=== PATIENT | male | born 1955 | race Caucasian/White ===

== ENCOUNTER 2017-07-09 02:03 | Inpatient (IN) | payer OTHER ==
[~2017-07-09] VITALS: Ht 170.2 cm; Wt 124.3 kg
[~2017-07-09 02:03] MED LIST: LISINOPRIL-HCT1 EAC1 PO; OMEPRAZOLE20 M2 PO; ONE DAILY MULT1 EAC2 PO; VITAMIN D1000 UNI1 PO; VITAMIN D2000 UNIT PO
--- NOTE | 2017-07-09 07:30 | Operative Report ---
Operative/Inv Procedure Report Surgery Date: 07/09/17 Name of Procedure: Left total knee arthroplasty Pre-Operative Diagnosis: Left knee degenerative joint disease Post-Operative Diagnosis: Left knee degenerative joint disease Estimated Blood Loss: 50ml to 100ml Surgeon/Assembly Machine Offbearer: Barry Peñaloza MD Anesthesia: general endotracheal tube, block Implants: [employer] size 7 left posterior stabilized Legion Oxinium femoral component. Mary Lou II left nonporous tibial baseplate size 5. Mary Lou II biconvex patellar component size 23 mm. Size 56 13 mm Legion posterior stabilized XlPe high flexion articular insert. Drains: Hemovac Complications: None Condition: Stable to PACU Operative Indication: This 62-year-old male with long-standing left knee pain that has failed conservative care. Risks and benefits of the procedure were discussed with the patient at length. Risks include but are not limited to nerve damage, muscle damage, infection, blood loss, blood clots, pulmonary embolus, and even . The patient agreed to the above risks and elected to proceed with surgery. Operative/Procedure Note Note: The patient was taken to the operating room. Anesthesia was induced after the timeout was performed. The lower extremity was prepped and draped in the normal sterile fashion. IV antibiotics were given prior to incision. The site marking was visualized prior to incision. After the leg was prepped and draped, an esmarch was used to exsanguinate the extremity. The tourniquet was inflated. A midline incision was made proximal to the patella extending down to the tibial tubercle. A medial parapatellar approach was then made. The skin was retracted and the extensor mechanism was incised. The knee was taken down into full extension. The patellar fat pad was resected. The medial retinaculum was then taken down. The synovium over the distal femur was then resected. The patella was everted and the knee was flexed up. The lateral meniscus was then excised. The ACL was removed. A drill was then used to open up the distal femur. The intramedullary guide was then applied. A 6 distal femoral cut was then made. The femur was then sized. The chamfer guide was then applied. The anterior, posterior, and chamfer cuts were then made while protecting the patellar tendon with a Hohmann retractor and the medial collateral ligament with a Z retractor. A pickle fork was then used to deliver the tibia. The extramedullary tibial guide was then applied. The proximal tibial cut was made. The medial and lateral meniscus were then excised. The osteophytes were removed with a Rongeur. The tibia was sized and the trial base plate was then pinned in place. A trial femoral component was placed and a trial polyethylene insert was then applied as well. The knee was taken through a range of motion and was noted to be quite stable. The patella was then everted, sized, and then reamed. A trial patellar component was placed and the knee was taken through range of motion. The patella was noted to be quite stable. The femoral box cuts were then made for posterior stabilized knee. The tibial thin punch was then used. All trial instruments were then removed. The knee was copiously irrigated. Retractors were placed in the final components were then cemented in. A trial polyethylene insert was then placed. After the cement hardened, the excess cement was removed. The trial poly-insert was then removed. The knee was copiously irrigated. The final poly insert was inserted. The tourniquet was let down. Any bleeding vessels were identified and cauterized. A 1/8 inch Hemovac drain was then placed. The extensor mechanism was closed with #1 Vicryl suture in a simple interrupted fashion. The skin was closed with 2-0 Vicryl suture. A running subcuticular 4-0 Monocryl stitch was then placed. Dermabond was applied. A dry sterile dressing was placed and patient was transferred to PACU in stable condition.
--- NOTE | 2017-07-09 10:35 | Admission Core Measures ---
Acute Coronary Syndrome (CM) ACS Core Measures Acute Coronary Syndrome Diagnosis No Congestive Heart Failure (NEW) CHF Core Measures Congestive Heart Failure Diagnosis No Cerebrovascular Accident (NEW) CVA Core Measures CVA/TIA Diagnosis No Venous Thromboembolism VTE Core Vitaliy (View Protocol) VTE Risk Factors Age>40 No Mechanical VTE Prophylaxis d/t N/A MechProphylax Ordered No VTE Pharm Prophylaxis d/t NA PharmProphylax ordered Problem List As ranked by this Provider includes Assessment & Plan 1. Primary osteoarthritis of left knee HOME MEDS Home Med List Cholecalciferol (Vitamin D3) (Vitamin D) 2,000 UNIT CAPSULE 1 CAP PO DAILY SUPPLEMENT (Reported) Cholecalciferol (Vitamin D3) (Vitamin D) 1,000 UNIT CAPSULE 1 TAB PO D SUPPLEMENT (Reported) Lisinopril/Hydrochlorothiazide (Lisinopril-Hctz 20-25 MG Tab) 20 MG-25 MG TABLET 1 TAB PO DAILY BP (Reported) Multivitamin (One Daily Multivitamin) 1 EACH TABLET 1 TAB PO DAILY SUPPLEMENT (Reported) Omeprazole 20 MG CAPSULE.DR 1 CAP PO DAILY GERD (Reported)
--- NOTE | 2017-07-09 10:54 | Patient Discharge Instructions ---
Discharge Instructions General Discharge Information You were seen/treated for: Left knee pain related to unilateral primary osteoarthritis You had these procedures: Left total knee replacement Watch for these problems: Increasing pain despite the use of pain medication Increasing redness, warmth or swelling Drainage of any type from incision Inability to bear weight on operative leg Persistent nausea and vomiting Fever greater than 101.5 degrees Do not soak the wound: Yes No bath, but you may shower: Yes Other wound care: Please keep wound clean and dry. No ointments or lotions of any type on or near incision at any time. No exceptions. Your dressing will be changed by your nurse on the second day after your surgery. Daily dry dressing changes are recommended each day thereafter. Do not soak your wound in a bath at any time until otherwise indicated by your surgeon. You may shower, please dry wound immediately after shower with a clean towel. Diet Continue normal diet: Yes Recommended Diet: Regular Activity Full Activity/No Limits: No Activity Self Limited: Yes Pounds, do NOT lift more than: 10 Acute Coronary Syndrome Inclusion Criteria At DC or during hospital stay patient has or had the following: ACS DIAGNOSIS No Discharge Core Measures Meds if any: Prescribed or Continued at Discharge Meds if any: NOT Prescribed or Continued at Discharge Congestive Heart Failure Inclusion Criteria At DC or during hospital stay patient has or had the following: CHF DIAGNOSIS No Discharge Core Measures Meds if any: Prescribed or Continued at Discharge Meds if any: NOT Prescribed or Continued at Discharge Cerebrovascular accident Inclusion Criteria At DC or during hospital stay patient has or had the following: CVA/TIA Diagnosis No Discharge Core Measures Meds if any: Prescribed or Continued at Discharge Meds if any: NOT Prescribed or Continued at Discharge Venous thromboembolism Inclusion Criteria VTE Diagnosis No VTE Type NONE VTE Confirmed by (Test) NONE Discharge Core Measures - Per Current guidelines, there needs to be overlap - treatment for the first 5 days of Warfarin therapy. - If discharged on Warfarin prior to 5 days of - overlap therapy, the patient will need to be - assessed for post discharge needs including - *Post discharge parental anticoagulation - *Warfarin and/or parental anticoagulation education - *Follow up date to check INR post discharge At least 5 days overlap therapy as Inpatient No Meds if any: Prescribed or Continued at Discharge Note: Overlap Therapy is Warfarin and Anticoagulant Meds if any: NOT Prescribed or Continued at Discharge
--- NOTE | 2017-07-09 10:57 | Surgical Discharge Summary ---
Visit Information Visit Dates Admission Date: 07/09/17 Discharge Date: 07/11/17 History of Present Illness Chief Complaint: Left knee pain related to unilateral primary osteoarthritis Surgical History Pertinent Surgical History: non-contributory Review of Systems: See H&P Hospital Course Course Attending Physician: Barry Peñaloza MD Primary Care Physician: Abhinav Resendiz MD Hospital Course: Patient was admitted to the hospital for an elective total joint replacement. The procedure was tolerated well and patient was transferred to a general surgical floor. Diet was advanced and tolerated, and the patient voided spontaneously. The patient was evaluated and treated by physical therapy. At the time of hospital discharge, the vital signs were stable, neurovascular status was intact, and pain was controlled with the use of oral pain medications. Allergies: Coded Allergies: No Known Allergies (07/06/17) Significant Procedures: LEFT TKA Disposition Summary Disposition Principal Diagnosis: Left knee unilateral primary osteoarthritis Additional Diagnosis: None Discharge Disposition: home health services Discharge Instructions General Discharge Information Code Status: Full Code Patient's Diet: Regular, advance as tolerated Patient's Activity: WBAT Follow-Up Instructions/Appts: Follow up with Dr. Peñaloza in two weeks from date of surgery, please call office to arrange/confirm that appointment. Medications at Discharge Discharge Medications: Continue taking these medications: Lisinopril/Hydrochlorothiazide (Lisinopril-Hctz 20-25 MG Tab) 20 MG-25 MG TABLET 1 Tablet ORAL DAILY Omeprazole (Omeprazole) 20 MG CAPSULE. 1 Capsule ORAL DAILY Cholecalciferol (Vitamin D3) (Vitamin D) 2,000 UNIT CAPSULE 1 Capsule ORAL DAILY Cholecalciferol (Vitamin D3) (Vitamin D) 1,000 UNIT CAPSULE 1 Tablet ORAL Every Day Multivitamin (One Daily Multivitamin) 1 EACH TABLET 1 Tablet ORAL DAILY Start taking the following new medications: Enoxaparin Sodium (Lovenox) 40 MG/0.4 ML SYRINGE 1 Syringe Inject into fatty tissue DAILY Qty = 30 No Refills Docusate Sodium (Docusate Sodium) 100 MG CAPSULE 1 Tablet ORAL TWICE DAILY Qty = 60 No Refills
[2017-07-09 12:05] VITALS: BP 160/60
[2017-07-09 14:00] VITALS: BP 162/78
--- NOTE | 2017-07-09 14:28 | PN- Orthopedic ---
Subjective Subjective: POST-OP CHECK, called by RN to notify me that his HR is 120 pt sitting in bed, somewhat anxious because this is his first time in a hospital and first time every having had surgery. pain 08/27. has not ambulated yet. Denies Cp/SOB/palpitations/DIETRICH Objective Vital Signs and I&Os Vital Signs Date Time Temp Pulse Resp B/P B/P Pulse O2 O2 Flow FiO2 Mean Ox Delivery Rate 07/09 1400 97.6 119 18 162/78 97 Room Air 07/09 1300 Room Air Room Air 07/09 1205 97.8 98 16 160/60 99 Room Air Intake & Output 07/09 1600 07/09 0800 07/09 0000 07/08 1600 07/08 0800 07/08 0000 Intake Total Output Total Balance Patient 273 lb Weight Weight Reported by Patient Measurement Method Physical Exam: gen-NAD resp-clear cardio- tachy abd- obese, NT ext- left leg in diann-wrap, clean and dry. drain in place with 40cc sanguinous drainage in bulb, distal motor and sensory function intact. Current Medications: Current Medications Sig/Verito Start time Last Medication Dose Route Stop Time Status Admin Acetaminophen 650 MG Q4P PRN 07/09 1200 AC PO Cefazolin Sodium 2 GM IQ8 07/09 1600 AC N/A 1 UNIT IV 07/10 0029 Cefazolin Sodium 2,000 MG ONCE 07/09 0000 DC IV 07/09 2359 Cholecalciferol 400 IU DAILY 07/10 1000 AC PO Dextrose/Sodium 1,000 ML .[id number] 07/09 1200 AC 07/09 Chloride IV 1238 Docusate Sodium 100 MG BID 07/09 2200 AC PO Enoxaparin Sodium 40 MG DAILY 07/10 1000 AC SC Hydrochlorothiazide 25 MG DAILY 07/10 1000 AC PO Ketorolac 15 MG Q6 07/09 1200 AC 07/09 Tromethamine IV 07/12 0601 1237 Lisinopril 20 MG DAILY 07/10 1000 AC PO Omeprazole 20 MG DAILY AC 07/10 0700 AC PO Ondansetron HCl 4 MG Q6P PRN 07/09 1200 AC IV Oxycodone/ 1 TAB Q4P PRN 07/09 1200 AC Acetaminophen PO Oxycodone/ 2 TAB Q4P PRN 07/09 1200 AC Acetaminophen PO Ropivacaine 500 ML ONCE ONE 07/09 0830 DC ON-Q Ball 1 BAG INJ 07/11 1029 Senna/Docusate Sodium 2 TAB DAILY 07/10 1000 AC PO Assessment/Plan Assessment/Plan 62yo M SP left TKA POD0. Tachycardic per RN at 120. Upon my exam his HR was 100bmp. denies CP/palpitations/SOB. EKG now- sinus tachycardia, no chnge from prior ekg pain management OnQ to stay in 48h hector-op ABX for total of 3 doses PT-WBAT cont regular home medications dvt ppx- lovenox, alps and early ambulation reg diet Core Measures Venous Thromboembolism VTE Risk Factors Age>40 No Mechanical VTE Prophylaxis d/t N/A MechProphylax Ordered No VTE Pharm Prophylaxis d/t NA PharmProphylax ordered
[2017-07-09 16:00] VITALS: BP 150/72
[2017-07-09 18:30] VITALS: BP 168/82
[2017-07-09 22:39] VITALS: BP 152/80
[2017-07-10 02:00] VITALS: BP 90/58
[2017-07-10 06:49] VITALS: BP 122/60
--- NOTE | 2017-07-10 07:23 | PN- Orthopedic ---
Surgical Brief Attending Note Brief Attending Note: Resting comfortably AVSS LLE - +EHL/FHL +sens m/l/1st DWS dressing c/d/i A/P - POD 1 s/p L TKA WBAT PT Lovenox D/C rousseau and drain
[2017-07-10 08:02] LABS: ABSOLUTE BASOPHIL COUNT 0 /CUMM (0.0-0.2); ABSOLUTE EOSINOPHIL COUNT 0 /CUMM (0.0-0.7); ABSOLUTE GRANULOCYTE CT 9.7 /CUMM (1.4-6.5); ABSOLUTE LYMPH COUNT 0.9 /CUMM (1.2-3.4); ABSOLUTE MONOCYTE COUNT 1.3 /CUMM (0.10-0.60); BASOPHIL % 0.1 % (0.0-2.0); EOSINOPHIL % 0.1 % (0-5); GRANULOCYTE % 81.3 % (42.2-75.2); HEMATOCRIT 36.7 % (42-52); MEAN CORPUSCULAR HGB CONC 34.2 G/DL (33.0-37.0); MEAN CORPUSCULAR VOLUME 93.8 FL (80.0-94.0); MEAN PLATELET VOLUME 8.7 FL (7.4-10.4); PLATELET COUNT 216 /CUMM (130-400); RBC DISTRIBUTION WIDTH 13.7 % (11.5-14.5); RED BLOOD CELL CT 3.91 /CUMM (4.70-6.10); WHITE BLOOD CELL COUNT 11.9 /CUMM (4.8-10.8)
[2017-07-10 10:00] VITALS: BP 118/60
--- NOTE | 2017-07-10 10:53 | PN- Orthopedic ---
Subjective Subjective: Patient doing well this morning. He is ambulating with a walker and physical therapy assistance without any difficulty. He is tolerating a regular diet and pain is well-controlled with oral analgesia. He feels up to trying a voiding trial. Patient and nursing denies any other issues or complaints. Objective Vital Signs and I&Os Vital Signs Date Time Temp Pulse Resp B/P B/P Pulse O2 O2 Flow FiO2 Mean Ox Delivery Rate 07/10 1000 98.2 87 20 118/60 94 Room Air 07/10 0803 98.0 98 20 122/60 07/10 0649 98.0 98 20 122/60 97 Room Air 07/10 0200 98.2 83 20 90/58 96 Room Air 07/09 2239 98.3 105 20 152/80 93 Room Air 07/09 1830 98.6 110 20 168/82 96 Room Air 07/09 1600 98.4 107 20 150/72 95 Room Air 07/09 1400 97.6 119 18 162/78 97 Room Air 07/09 1300 Room Air Room Air 07/09 1205 97.8 98 16 160/60 99 Room Air Intake & Output 07/10 1600 07/10 0800 07/10 0000 07/09 1600 07/09 0800 07/09 0000 Intake Total 1000 1200 625 Output Total 1230 1080 250 Balance -230 120 375 Intake, IV 600 600 225 Intake, Oral 400 600 400 Output, 180 80 Drainage Output, Urine 1050 1000 250 Patient 273 lb Weight Weight Reported by Patient Measurement Method Physical Exam: General: Alert, awake, no acute distress Abdomen: Obese, soft, nontender, nondistended Extremities: Right lower extremity with no clubbing, cyanosis, edema or calf tenderness. Left lower extremity Cuauhtemoc wrap is clean, dry, and intact with very minimal sanguinous strikethrough at the medial aspect of the knee. Light touch sensation intact. 5 out of 5 strength with dorsiflexion and plantar flexion of the feet. JORGE drain with sanguinous output. Current Medications: Current Medications Sig/Verito Start time Last Medication Dose Route Stop Time Status Admin Acetaminophen 650 MG Q4P PRN 07/09 1200 AC PO Cefazolin Sodium 2 GM IQ8 07/09 1600 DC 07/09 N/A 1 UNIT IV 07/10 0029 2311 Cefazolin Sodium 2,000 MG ONCE 07/09 0000 DC IV 07/09 2359 Cholecalciferol 400 IU DAILY 07/10 1000 AC 07/10 PO 0803 Dextrose/Sodium 1,000 ML .[id number] 07/09 1200 AC 07/10 Chloride IV 0527 Docusate Sodium 100 MG BID 07/09 2200 AC 07/10 PO 0802 Enoxaparin Sodium 40 MG DAILY 07/10 1000 AC 07/10 SC 0802 Hydrochlorothiazide 25 MG DAILY 07/10 1000 AC 07/10 PO 0802 Hydrochlorothiazide 25 MG ONCE ONE 07/09 1900 DC 07/09 PO 07/09 1901 1856 Ketorolac 15 MG Q6 07/09 1200 AC 07/10 Tromethamine IV 07/12 0601 0527 Lisinopril 20 MG DAILY 07/10 1000 AC 07/10 PO 0803 Lisinopril 20 MG ONCE ONE 07/09 1900 DC 07/09 PO 07/09 190 1857 Meperidine HCl 50 MG .STK-MED ONE 07/09 1100 DC IM 07/09 1101 Omeprazole 20 MG DAILY AC 07/10 0700 AC 07/10 PO 0527 Ondansetron HCl 4 MG Q6P PRN 07/09 1200 AC IV Oxycodone/ 1 TAB Q4P PRN 07/09 1200 AC 07/09 Acetaminophen PO 2311 Oxycodone/ 2 TAB Q4P PRN 07/09 1200 AC 07/10 Acetaminophen PO 0806 Ropivacaine 500 ML ONCE ONE 07/09 0830 DC ON-Q Ball 1 BAG INJ 07/11 1029 Senna/Docusate Sodium 2 TAB DAILY 07/10 1000 AC 07/10 PO 0803 Results Last 48 Hours of Labs: Laboratory Tests 07/10 0712 Chemistry Sodium (137 - 145 mmol/L) 136 L Potassium (3.5 - 5.1 mmol/L) 4.0 Chloride (98 - 107 mmol/L) 100 Carbon Dioxide (22 - 30 mmol/L) 26 Anion Gap (5 - 16) 10 BUN (9 - 20 mg/dL) 16 Creatinine (0.7 - 1.2 mg/dL) 1.0 Estimated GFR (>60 ml/min) > 60 BUN/Creatinine Ratio (7 - 25 %) 16.0 Hematology CBC w Diff NO MAN DIFF REQ WBC (4.8 - 10.8 /CUMM) 11.9 H RBC (4.70 - 6.10 /CUMM) 3.91 L Hgb (14.0 - 18.0 G/DL) 12.5 L Hct (42 - 52 %) 36.7 L MCV (80.0 - 94.0 FL) 93.8 MCH (27.0 - 31.0 PG) 32.0 H MCHC (33.0 - 37.0 G/DL) 34.2 RDW (11.5 - 14.5 %) 13.7 Plt Count (130 - 400 /CUMM) 216 MPV (7.4 - 10.4 FL) 8.7 Gran % (42.2 - 75.2 %) 81.3 H Lymphocytes % (20.5 - 51.1 %) 7.3 L Monocytes % (1.7 - 9.3 %) 11.2 H Eosinophils % (0 - 5 %) 0.1 Basophils % (0.0 - 2.0 %) 0.1 Absolute Granulocytes (1.4 - 6.5 /CUMM) 9.7 H Absolute Lymphocytes (1.2 - 3.4 /CUMM) 0.9 L Absolute Monocytes (0.10 - 0.60 /CUMM) 1.3 H Absolute Eosinophils (0.0 - 0.7 /CUMM) 0 Absolute Basophils (0.0 - 0.2 /CUMM) 0 Recent Imaging Studies: None today Assessment/Plan Assessment/Plan This is a 62-year-old male with past medical history significant for osteoarthritis, hypertension, obesity, and GERD who is postoperative day #1 status post left total knee arthroplasty. Plan for today is as follows: 1. Regular diet 2. Continue medications for existing comorbidities 3. Continue oral analgesia and bowel regimen as well as On-Q pump which will be removed tomorrow at the bedside, dressing change will be performed by the surgery team tomorrow as well 4. Continue physical therapy, weightbearing as tolerated, needs to be evaluated on stairs to determine if short-term rehabilitation is required upon discharge 5. JORGE drain to be removed at bedside 6. Villeda removed, due to void in 6-8 hours, if no void bladder scan and call with residual 7. Continue Lovenox for DVT prophylaxis 8. I encouraged incentive spirometry, and turn, cough, and deep breathing techniques 9. Anticipate discharge possibly 07/11/2017 versus 07/12/2017 either home with PT or short-term rehabilitation 10. Antibiotics discontinued 11. Case has been discussed with attending who is in agreement with the plan of care Problem List: 1. Primary osteoarthritis of left knee 2. S/P total knee arthroplasty Core Measures Venous Thromboembolism VTE Risk Factors Age>40 No Mechanical VTE Prophylaxis d/t N/A MechProphylax Ordered No VTE Pharm Prophylaxis d/t NA PharmProphylax ordered
[2017-07-10 14:58] VITALS: BP 120/64
[2017-07-10 22:03] VITALS: BP 118/60
[2017-07-11 06:55] VITALS: BP 124/74
--- NOTE | 2017-07-11 08:48 | PN- Orthopedic ---
Subjective Subjective: pod#2 s/p left tka no major issues overnight deneis cp, sob, no n+v with diet toiliting independently ambualting well with pt- awaiting to do stairs today Objective Vital Signs and I&Os Vital Signs Date Time Temp Pulse Resp B/P B/P Pulse O2 O2 Flow FiO2 Mean Ox Delivery Rate 07/11 0655 98.1 99 20 124/74 97 Room Air 07/10 2203 98.3 93 20 118/60 96 07/10 1458 98.5 86 20 120/64 97 Room Air 07/10 1000 98.2 87 20 118/60 94 Room Air Intake & Output 07/11 1600 07/11 0800 07/11 0000 07/10 1600 07/10 0800 07/10 0000 Intake Total 120 885 073 9637 1200 Output Total 250 1750 1230 1080 Balance -130 100 -950 -230 120 Intake, IV 20 600 600 Intake, Oral 100 100 800 400 600 Output, 180 80 Drainage Output, Urine 250 1750 1050 1000 Physical Exam: cv: rrr lungs: clear abd: soft, +bs ext: drsg changed, wound c/d/i no calf tenderness bilat distal cms intact Assessment/Plan Assessment/Plan ortho stable plan cont oob with pt/stairs lovenox for dvt prophylaxis home d/c planning Core Measures Venous Thromboembolism VTE Risk Factors Age>40 No Mechanical VTE Prophylaxis d/t N/A MechProphylax Ordered No VTE Pharm Prophylaxis d/t NA PharmProphylax ordered
[2017-07-11] MEDS ORDERED: LOVENOX40 MG/0.1 SC (12:01)
[2017-07-11] MEDS ORDERED: DOCUSATE SODIU100 M3 PO (12:01)
[2017-07-11] MEDS ORDERED: PERCOCET 5-3251 EACH PO (12:06)
[2017-07-11 14:53] VITALS: BP 110/68
== END 2017-07-11 15:00 | disposition home health service (06) | DRG 470 ==
LOC: SDA 02:03 → ENRESERV 11:04 → ENTRNSPT 11:53 → EDTRNSPT 11:58 → EDTRNSPTSTS 11:58 → 2NA 12:07 → CMPTRNSPT 12:15 → CMPBEDREQ 14:02 → ENPENDDIS 07-11 12:01 → 2NA 07-11 15:00
PROVIDERS: Physician Assistant Surgical
PROC: 0SRD0J9 Replacement of Left Knee Joint with Synthetic Substitute, Cemented, Open Approach (ICD-10-PCS; principal; 2017-07-09)
PROC: 3E0T3BZ Introduction of Anesthetic Agent into Peripheral Nerves and Plexi, Percutaneous Approach (ICD-10-PCS; 2017-07-09)
DX: M17.12 Unilateral primary osteoarthritis, left knee (principal); E66.01 Morbid (severe) obesity due to excess calories; Z68.41 Body mass index [BMI] 40.0-44.9, adult; I10 Essential (primary) hypertension; K21.9 Gastro-esophageal reflux disease without esophagitis; E55.9 Vitamin D deficiency, unspecified
CPT/HCPCS: 2NAP; 36415; 36592; 82436; 87086; 93005; 93010; 97110-GO; 97116-GO; 97161-GP; 97530-GO; C1713; J0690; J1650; J2795; J7042